=== PATIENT | male | born 1950 | race Caucasian/White ===

== ENCOUNTER 2025-01-07 19:25 | Emergency (ER) | payer MEDICARE, OTHER ==
[~2025-01-07] VITALS: Ht 177.8 cm; Wt 96.2 kg
[2025-01-07] MEDS ORDERED: ACETAMINOPHEN 325 MG TABLET PO PRN (20:00)
[2025-01-07] MEDS ORDERED: Z GUARD REMEDY 4 OZ OINT TP PRN (20:00)
[2025-01-07] MEDS ORDERED: MAGNESIUM HYDROXIDE 30 ML UDC PO PRN (20:00)
[2025-01-07] MEDS ORDERED: MAG HYDROX/AL HYDROX/SIMETH 30 ML UDC PO PRN (20:00)
[2025-01-07] MEDS ORDERED: ONDANSETRON HCL/PF 4 MG/2 ML VIAL IVP PRN (20:00)
[2025-01-07 20:50] LABS: PLATELET COUNT (AUTO) 221 K/uL (150-450); RED BLOOD CELL COUNT(AUTO) 4.42 MIL/uL (4.5-6.0); RED CELL DISTRIBUTION WIDTH 16.0 % (11.5-15.0); WHITE BLOOD COUNT (AUTO) 6.5 K/uL (4.3-11.0)
[2025-01-07 20:58] LABS: CALCIUM, SERUM 9.8 mg/dL (8.5-10.1); CREATININE 2.0 mg/dL (0.6-1.3); SODIUM SERUM 140 mmol/L (136-145); UREA NITROGEN, BLOOD 23 mg/dL (7-18)
[2025-01-07 21:09] LABS: ASPARTATE AMINOTRANSFERASE 8 U/L (15-37); TOTAL PROTEIN, SERUM 8.2 g/dL (6.4-8.2)
[2025-01-07 21:11] LABS: ALCOHOL, BLOOD < 3 mg/dL (0-10)
[2025-01-08 02:08] VITALS: BP 126/62; TEMP 98.2; O2SAT 95
== END 2025-01-08 02:53 | disposition short-term general hospital (02) ==
LOC: ER 19:40
DX: E03.9 Hypothyroidism, unspecified (principal); I10 Essential (primary) hypertension; N17.9 Acute kidney failure, unspecified; R53.1 Weakness; E11.9 Type 2 diabetes mellitus without complications; E78.5 Hyperlipidemia, unspecified; F25.9 Schizoaffective disorder, unspecified; G40.909 Epilepsy, unspecified, not intractable, without status epilepticus; G93.41 Metabolic encephalopathy; I25.2 Old myocardial infarction; F32.9 Major depressive disorder, single episode, unspecified; N40.0 Benign prostatic hyperplasia without lower urinary tract symptoms; Z87.440 Personal history of urinary (tract) infections
CPT/HCPCS: 36415; 71045-TC; 80048-TC; 80076-TC; 84439-TC; 84443-TC; 85025-TC; G0480